=== PATIENT | male | born 1965 | race Caucasian/White ===

== ENCOUNTER 2017-03-16 08:53 | Inpatient (IN) | payer OTHER ==
[2017-03-16 09:55] VITALS: BMI 22.8
--- NOTE | 2017-03-16 12:55 | HP ---
CIWA Score - CIWA Score Nausea/Vomitin-Int. Nausea w/Dry Heave Muscle Tremors: 4-Moderate,w/Arms Extend Anxiety: 4-Mod. Anxious/Guarded Agitation: 4-Moderately Restless Paroxysmal Sweats: No Perspiration Orientation: 0-Oriented Tacttile Disturbances: 3-Moderate Itch/Numb/Burn Auditory Disturbances: 0-None Visual Disturbances: 0-None Headache: 1-Very Mild CIWA-Ar Total Score: 20 Admission ROS S - HPI Chief Complaint: ALCOHOL WITHDRAWAL SX Allergies/Adverse Reactions: Allergies Allergy/AdvReac Type Severity Reaction Status Date / Time No Known Allergies Allergy Verified 03/16/17 11:03 History of Present Illness: 51 Y/O MALE WITH A HX OF ALCOHOL DEPENDENCE SEEKING DETOX [place]. Exam Limitations: No Limitations, Intoxication - Ebola screening Have you traveled outside of the country in the last 21 days: No (N) Have you had contact with anyone from an Ebola affected area: No Have you been sick,other than usual withdrawal symptoms: No Do you have a fever: No - Review of Systems Constitutional: Chills, Loss of Appetite, Night Sweats, Changes in sleep, Unintentional Wgt. Loss EENT: reports: Blurred Vision (WEARS CONTACTS), Tearing, Nose Congestion, Dental Problems (MISSING TEETH) Respiratory: reports: No Symptoms reported Cardiac: reports: Lightheadedness GI: reports: Constipated, Nausea, Poor Appetite, Poor Fluid Intake, Vomiting : reports: Burning (DUE TO DRINKING) Musculoskeletal: reports: Back Pain, Joint Pain, Muscle Pain Integumentary: reports: No Symptoms Reported Neuro: reports: Headache, Tremors, Unsteady Gait, Dizziness Endocrine: reports: No Symptoms Reported Hematology: reports: No Symptoms Reported Psychiatric: reports: Orientated x3 Other Systems: Reviewed and Negative Patient History - Patient Medical History Hx Anemia: No Hx Asthma: No Hx Chronic Obstructive Pulmonary Disease (COPD): No Hx Cancer: No Hx Cardiac Disorders: No Hx Congestive Heart Failure: No Hx Hypertension: No Hx Hypercholesterolemia: No Hx Pacemaker: No HX Cerebrovascular Accident: No Hx Seizures: No Hx Dementia: No Hx Diabetes: No Hx Gastrointestinal Disorders: Yes (acid reflux-NO MED) Hx Liver Disease: No Hx Genitourinary Disorders: No Hx Sexually Transmitted Disorders: No Hx Renal Disease (ESRD): No Hx Thyroid Disease: No Hx Human Immunodeficiency Virus (HIV): No Hx Hepatitis C: No Hx Depression: Yes (NEVER TOOK MED) Hx Suicide Attempt: No (DENIES) Hx Schizophrenia: No - Patient Surgical History Past Surgical History: No Hx Neurologic Surgery: No Hx Cataract Extraction: No Hx Cardiac Surgery: No Hx Lung Surgery: No Hx Breast Surgery: No Hx Breast Biopsy: No Hx Abdominal Surgery: No Hx Appendectomy: No Hx Cholecystectomy: No Hx Genitourinary Surgery: No Hx Orthopedic Surgery: No Anesthesia Reaction: No - PPD History Previous Implant?: Yes Documented Results: Negative w/proof Implanted On Prior [facility] Admission?: Yes Date: 04/29/12 Results: 0 mm PPD to be Administered?: Yes - Reproductive History Patient is a Female of Child Bearing Age (11 -55 yrs old): No (MALE) - Smoking Cessation Smoking history: Current every day smoker Have you smoked in the past 12 months: Yes Aproximately how many cigarettes per day: 30 Hx Chewing Tobacco Use: No Initiated information on smoking cessation: Yes 'Breaking Loose' booklet given: 03/16/17 - Substance & Tx. History Hx Alcohol Use: Yes (VODKA/RUM) Hx Substance Use: Yes (MARIJUANA) Substance Use Type: Alcohol, Marijuana Hx Substance Use Treatment: Yes (LAST TX AT [facility] DETOX) - Substances Abused Alcohol-vodka/rum Route: Oral Frequency: Daily Amount used: 2 pts. Age of first use: 16 Date of Last Use: 03/16/17 Marijuana Route: Smoking Frequency: Daily Amount used: $2-3 Age of first use: 17 Date of Last Use: 03/15/17 Family Disease History - Family Disease History Family History: Denies Admission Physical Exam [facility] - Vital Signs Vital Signs: Vital Signs - 24 hr 03/16/17 09:52 Temperature 95.9 F L Pulse Rate 83 Respiratory 18 Rate Blood Pressure 149/98 - Physical General Appearance: Yes: Moderate Distress, Irritable, Anxious HEENTM: Yes: EOMI, Normocephalic, BETHANY, Pharynx Normal Respiratory: Yes: Chest Non-Tender, Lungs Clear, Normal Breath Sounds, No Respiratory Distress Neck: Yes: Supple, Trachea in good position Breast: Yes: Breast Exam Deferred Cardiology: Yes: Regular Rhythm, Regular Rate, S1, S2 Abdominal: Yes: Normal Bowel Sounds, Non Tender, Flat Genitourinary: Yes: Other (N/C) Back: Yes: Within Normal Limits Musculoskeletal: Yes: full range of Motion, Gait Steady Extremities: Yes: Normal Range of Motion, Non-Tender Neurological: Yes: 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 II-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 NML intact, Fully Oriented, Alert, Motor Strength 5/5 Integumentary: Yes: Dry, Warm, Other (SKIN FLUSHING) Lymphatic: Yes: Within Normal Limits - Diagnostic (1) Alcohol dependence with uncomplicated withdrawal Current Visit: Yes Status: Acute (2) Nicotine dependence Current Visit: Yes Status: Acute Qualifiers: Nicotine product type: cigarettes Substance use status: in withdrawal Qualified Code(s): F17.213 - Nicotine dependence, cigarettes, with withdrawal (3) GERD (gastroesophageal reflux disease) Current Visit: Yes Status: Chronic Qualifiers: Esophagitis presence: without esophagitis Qualified Code(s): K21.9 - Gastro -esophageal reflux disease without esophagitis Cleared for Admission [facility] - Detox or Rehab [facility] Level of Care: Medically Managed Detox Regimen/Protocol: Librium [facility] Breath Alcohol Content Breath Alcohol Content: 0.247 Urine Drug Screen - Results Drug Screen Negative: No Urine Drug Screen Results: THC-Marijuana, BZO-Benzodiazepines
[2017-03-16] MEDS ORDERED: LOPERAMIDE HCL 2 MG CAPSULE PO PRN (13:04)
[2017-03-16] MEDS ORDERED: MAGNESIUM HYDROX 2400MG/30ML ORAL SUSPENSION 30 ML CUP PO PRN (13:04)
[2017-03-16] MEDS ORDERED: chlordiazePOXIDE HCL 25 MG CAPSULE PO PRN (13:04)
[2017-03-16] MEDS ORDERED: ACETAMINOPHEN 325 MG TABLET (FP) PO PRN (13:04)
[2017-03-16] MEDS ORDERED: MENTHOL/PHENOL 1 EACH UD MM PRN (13:04)
[2017-03-16] MEDS ORDERED: MAGNESIUM CITRATE 300 ML BOTTLE PO PRN (13:04)
[2017-03-16] MEDS ORDERED: guaiFENesin/D-METHORPHAN HB 10 ML UNIT-DOSE CUPS PO PRN (13:04)
[2017-03-16] MEDS ORDERED: MAG HYDROX/AL HYDROX/SIMETH 30 ML UNIT-DOSE CUP PO PRN (13:04)
[2017-03-16] MEDS ORDERED: P-EPHED 60MG/TRIPROLIDI 2.5MG TABLET PO PRN (13:04)
[2017-03-16] MEDS ORDERED: IBUPROFEN 400 MG TABLET (FP) PO PRN (13:04)
[2017-03-16] MEDS ORDERED: chlordiazePOXIDE HCL 25 MG CAPSULE PO ONE (14:00)
[2017-03-16] MEDS: NICOTINE 21 MG/24 HOURS TOPICAL PATCH TD SCH (14:20)
[2017-03-16] MEDS: chlordiazePOXIDE HCL 25 MG CAPSULE PO SCH ×2 (17:12→22:32)
[2017-03-16 17:23] LABS: URINE APPEARANCE SLCLOUDY; URINE BILIRUBIN NEGATIVE (NEGATIVE); URINE BLOOD NEGATIVE (NEGATIVE); URINE COLOR AMBER; URINE GLUCOSE (UA) NEGATIVE (NEGATIVE); URINE KETONE TRACE (NEGATIVE); URINE LEUK ESTERASE NEGATIVE (NEGATIVE); URINE NITRITE NEGATIVE (NEGATIVE)
[2017-03-16 17:34] LABS: MCH 35.3 pg (25.7-33.7); MCHC 34.2 g/dl (32.0-35.9); MEAN CELL VOLUME 103.2 fl (80-96); MEAN PLT VOLUME 9.7 fl (7.5-11.1); PLATELET COUNT 167 K/MM3 (134-434); WHITE BLOOD COUNT 7.8 K/mm3 (4.0-10.0)
[2017-03-16 17:41] LABS: URINE PROTEIN 1+ (NEGATIVE)
[2017-03-16 17:45] LABS: URINE MUCUS RARE; URINE RBC 1 /hpf (0-3); URINE WBC 2 /hpf (3-5)
[2017-03-16 17:52] LABS: ALBUMIN 3.8 g/dl (3.4-5.0); ANION GAP 11 (8-16); BILIRUBIN,TOTAL 0.6 mg/dL (0.2-1.0); CO2 32 mmol/L (21-32); CREATININE 0.7 mg/dL (0.7-1.3); GLUCOSE,RANDOM 111 mg/dL (74-106); SGOT/AST 196 U/L (15-37); SGPT/ALT 120 U/L (12-78)
--- NOTE | 2017-03-16 17:53 | CONSULT ---
[facility] Psychiatric Consult - Data Date of interview: 03/16/17 Admission source: [facility] Identifying data: Readmission to [facility] for this 51 y/o male seeking detox treatment on for alcohol and canabis dependence.Patient is single without children,domiciled,unemployed and supported on food stamps. Substance Abuse History: Confirmed by patient in this session.See current [facility] report for details : Smoking history: Current every day smoker. Have you smoked in the past 12 months: Yes. Aproximately how many cigarettes per day: 30. Hx Chewing Tobacco Use: No. Initiated information on smoking cessation: Yes. 'Breaking Loose' booklet given: 03/16/17. - Substance & Tx. History. Hx Alcohol Use: Yes (VODKA/RUM). Hx Substance Use: Yes (MARIJUANA). Substance Use Type: Alcohol, Marijuana. Hx Substance Use Treatment: Yes (LAST TX AT [facility] DETOX). - Substances Abused. Alcohol-vodka/rum. Route: Oral. Frequency: Daily. Amount used: 2 pts. Age of first use: 16. Date of Last Use : 03/16/17. Marijuana. Route: Smoking. Frequency: Daily. Amount used: $2- 3. Age of first use: 17. Date of Last Use: 03/15/17 Medical History: Remarkable for GERD and past history of Korsakoff's syndrome. Psychiatric History: Patient denies. Physical/Sexual Abuse/Trauma History: Patient denies. Additional Comment: Urine Drug Screen Results: THC-Marijuana, BZO- Benzodiazepines.Noted. Mental Status Exam - Mental Status Exam Alert and Oriented to: Time, Place, Person Cognitive Function: Good Patient Appearance: Well Groomed Mood: Withdrawn, Anxious Affect: Mood Congruent Patient Behavior: Fatigued, Appropriate, Cooperative Speech Pattern: Clear, Appropriate Voice Loudness: Normal Thought Process: Intact, Goal Oriented Thought Disorder: Not Present Hallucinations: Denies Suicidal Ideation: Denies Homicidal Ideation: Denies Insight/Judgement: Fair Sleep: Poorly, Difficulty falling asleep Appetite: Good Muscle strength/Tone: Normal Gait/Station: Normal Psychiatric Findings - Problem List ([place] 1, 2,3) (1) Alcohol dependence with uncomplicated withdrawal Current Visit: Yes Status: Acute (2) Nicotine dependence Current Visit: Yes Status: Acute Qualifiers: Nicotine product type: cigarettes Substance use status: in withdrawal Qualified Code(s): F17.213 - Nicotine dependence, cigarettes, with withdrawal (3) Marijuana dependence Current Visit: Yes Status: Acute (4) Insomnia Current Visit: Yes Status: Acute - Initial Treatment Plan Initial Treatment Plan: Psychoeducation.Sleep hygiene.Detoxification protocol in effect.Ambien 10 mg po hs prn.Patient is informed of the risk of parasomnias.He expresses his agreement to this careplan.Observation.
[2017-03-16 17:54] LABS: ALK PHOS 157 U/L (45-117)
[2017-03-16] MEDS: NICOTINE POLACRILEX 4 MG GUM BC PRN (19:51)
[2017-03-16 20:04] LABS: URINE LEUK ESTERASE Negative (NEGATIVE)
[2017-03-16] MEDS: THIAMINE HCL 100 MG TABLET (FP) PO SCH (22:32)
[2017-03-16] MEDS: ZOLPIDEM TARTRATE 10 MG TABLET (PARK CARE ONLY) PO PRN (22:32)
[2017-03-17] MEDS: chlordiazePOXIDE HCL 25 MG CAPSULE PO SCH ×4 (05:41→22:45)
[2017-03-17] MEDS: NICOTINE POLACRILEX 4 MG GUM BC PRN ×2 (08:46→20:41)
[2017-03-17] MEDS: PRENATAL VITAMINS W/ FOLIC ACID TABLET (FP) PO SCH (09:33)
[2017-03-17] MEDS: NICOTINE 21 MG/24 HOURS TOPICAL PATCH TD SCH (09:34)
[2017-03-17] MEDS: TETRAHYDROZOLINE HCL 1 DROP DROPS OU PRN ×2 (10:21→16:32)
--- NOTE | 2017-03-17 11:40 | EKG ---
Test Reason : Blood Pressure : / mmHG Vent. Rate : 081 BPM Atrial Rate : 081 BPM P-R Int : 174 ms QRS Dur : 102 ms QT Int : 370 ms P-R-T Axes : 040 085 066 degrees QTc Int : 429 ms NORMAL SINUS RHYTHM WITH SINUS ARRHYTHMIA NORMAL ECG NO PREVIOUS ECGS AVAILABLE Confirmed by AYAZ MARSHALL MD ([id number]) on 03/17/2017 11:40:29 AM Referred By: Confirmed By:AYAZ MARSHALL MD
--- NOTE | 2017-03-17 12:17 | PN ---
S CIWA - CIWA Score Nausea/Vomitin-No Nausea/No Vomiting Muscle Tremors: 3 Anxiety: 3 Agitation: 1-Slight > Activity Paroxysmal Sweats: 3 Orientation: 0-Oriented Tacttile Disturbances: 1-Very Mild Itch/Numbness Auditory Disturbances: 0-None Visual Disturbances: 3-Moderate Sensitivity Headache: 3-Moderate CIWA-Ar Total Score: 17 BHS Progress Note (SOAP) Subjective: Sweating, Tremors, H/A, Body Aches, Interrupted Sleep. Objective: PT. A &O X 3, OBSERVED AMBULATING ON UNIT. NO ACUTE DISTRESS. 03/17/17 12:13 Vital Signs Temperature 97.1 F L 03/17/17 09:40 Pulse Rate 115 H 03/17/17 09:40 Respiratory Rate 20 03/17/17 09:40 Blood Pressure 143/92 03/17/17 09:40 O2 Sat by Pulse Oximetry (%) Laboratory Tests 03/16/17 03/16/17 03/16/17 13:15 13:15 13:15 WBC 7.8 RBC 4.87 Hgb 17.2 H D Hct 50.3 H MCV 103.2 H MCH 35.3 H MCHC 34.2 RDW 13.0 Plt Count 167 D MPV 9.7 Sodium 142 Potassium 3.3 L D Chloride 99 Carbon Dioxide 32 Anion Gap 11 BUN 8 Creatinine 0.7 Creat Clearance w eGFR > 60 Random Glucose 111 H D Calcium 9.0 Total Bilirubin 0.6 AST 196 H D ALT 120 H D Alkaline Phosphatase 157 H D Total Protein 8.0 D Albumin 3.8 Urine Color Urine Appearance Urine pH Ur Specific [place] Urine Protein Urine Glucose (UA) Urine Ketones Urine Blood Urine Nitrite Urine Bilirubin Urine Urobilinogen Ur Leukocyte Esterase Urine WBC (Auto) Urine RBC (Auto) Urine Mucus RPR Titer Nonreactive 03/16/17 15:15 WBC RBC Hgb Hct MCV MCH MCHC RDW Plt Count MPV Sodium Potassium Chloride Carbon Dioxide Anion Gap BUN Creatinine Creat Clearance w eGFR Random Glucose Calcium Total Bilirubin AST ALT Alkaline Phosphatase Total Protein Albumin Urine Color Maddy Urine Appearance Slcloudy Urine pH 5.0 Ur Specific [place] 1.026 Urine Protein 1+ H Urine Glucose (UA) Negative Urine Ketones Trace H Urine Blood Negative Urine Nitrite Negative Urine Bilirubin Negative Urine Urobilinogen 2.0 Ur Leukocyte Esterase Negative Urine WBC (Auto) 2 Urine RBC (Auto) 1 Urine Mucus Rare RPR Titer LABS NOTED. Assessment: 03/17/17 12:14 WITHDRAWAL SYMPTOMS. HYPOKALEMIA. HYPERTENSION. 03/17/17 12:17 Plan: CONTINUE DETOX. K-DUR, 20 MEQ PO X 1 NOW, THEN 20 MEQ PO BID. CLONIDINE, 0.1 MG PO X 1 FOR ELEVATED BP AND FOR DETOX SYMPTOMS. HFP ON 03/19/2017 FOR ABNORMAL ADMISSION LIVER ENZYME VALUES. INCREASE DAILY PO FLUID INTAKE.
[2017-03-17] MEDS ORDERED: cloNIDine HCL 0.1 MG TABLET PO ONE (12:50)
[2017-03-17] MEDS ORDERED: POTASSIUM CHLORIDE TABS 20 MEQ TABLET.ER (FP) PO ONE (12:50)
[2017-03-17] MEDS: POTASSIUM CHLORIDE TABS 20 MEQ TABLET.ER (FP) PO SCH (17:20)
[2017-03-17] MEDS: THIAMINE HCL 100 MG TABLET (FP) PO SCH (22:45)
[2017-03-17] MEDS: ZOLPIDEM TARTRATE 10 MG TABLET (PARK CARE ONLY) PO PRN (22:45)
[2017-03-18] MEDS: chlordiazePOXIDE HCL 25 MG CAPSULE PO SCH ×2 (06:14→10:13)
[2017-03-18] MEDS: NICOTINE POLACRILEX 4 MG GUM BC PRN ×4 (06:41→22:50)
[2017-03-18] MEDS: NICOTINE 21 MG/24 HOURS TOPICAL PATCH TD SCH (10:13)
[2017-03-18] MEDS: POTASSIUM CHLORIDE TABS 20 MEQ TABLET.ER (FP) PO SCH ×2 (10:13→18:02)
[2017-03-18] MEDS: PRENATAL VITAMINS W/ FOLIC ACID TABLET (FP) PO SCH (10:13)
--- NOTE | 2017-03-18 11:44 | PN ---
S CIWA - CIWA Score Nausea/Vomitin Muscle Tremors: 3 Anxiety: 4-Mod. Anxious/Guarded Agitation: 2 Paroxysmal Sweats: No Perspiration Orientation: 0-Oriented Tacttile Disturbances: 2-Mild Itch/Numbness/Burn Auditory Disturbances: 0-None Visual Disturbances: 2-Mild Sensitivity Headache: 0-None Present CIWA-Ar Total Score: 16 BHS Progress Note (SOAP) Subjective: Nausea, Tremors, Body Aches, Interrupted Sleep, Fatigue. Objective: PT. A & O X 3, OBSERVED AMBULATING ON UNIT. NO ACUTE DISTRESS. PT. DENIES ANY HISTORY OF HTN OR OF TREATMENT FOR HTN. 03/18/17 11:40 Vital Signs Temperature 98.1 F 03/18/17 10:38 Pulse Rate 97 H 03/18/17 10:38 Respiratory Rate 18 03/18/17 10:38 Blood Pressure 131/96 03/18/17 10:38 O2 Sat by Pulse Oximetry (%) Laboratory Tests 03/16/17 03/16/17 03/16/17 13:15 13:15 13:15 WBC 7.8 RBC 4.87 Hgb 17.2 H D Hct 50.3 H MCV 103.2 H MCH 35.3 H MCHC 34.2 RDW 13.0 Plt Count 167 D MPV 9.7 Sodium 142 Potassium 3.3 L D Chloride 99 Carbon Dioxide 32 Anion Gap 11 BUN 8 Creatinine 0.7 Creat Clearance w eGFR > 60 Random Glucose 111 H D Calcium 9.0 Total Bilirubin 0.6 AST 196 H D ALT 120 H D Alkaline Phosphatase 157 H D Total Protein 8.0 D Albumin 3.8 Urine Color Urine Appearance Urine pH Ur Specific [place] Urine Protein Urine Glucose (UA) Urine Ketones Urine Blood Urine Nitrite Urine Bilirubin Urine Urobilinogen Ur Leukocyte Esterase Urine WBC (Auto) Urine RBC (Auto) Urine Mucus RPR Titer Nonreactive 03/16/17 15:15 WBC RBC Hgb Hct MCV MCH MCHC RDW Plt Count MPV Sodium Potassium Chloride Carbon Dioxide Anion Gap BUN Creatinine Creat Clearance w eGFR Random Glucose Calcium Total Bilirubin AST ALT Alkaline Phosphatase Total Protein Albumin Urine Color Maddy Urine Appearance Slcloudy Urine pH 5.0 Ur Specific [place] 1.026 Urine Protein 1+ H Urine Glucose (UA) Negative Urine Ketones Trace H Urine Blood Negative Urine Nitrite Negative Urine Bilirubin Negative Urine Urobilinogen 2.0 Ur Leukocyte Esterase Negative Urine WBC (Auto) 2 Urine RBC (Auto) 1 Urine Mucus Rare RPR Titer LABS NOTED. 03/18/17 11:43 Assessment: 03/18/17 11:41 WITHDRAWAL SYMPTOMS. HYPOKALEMIA. 03/18/17 11:44 Plan: CONTINUE DETOX. INCREASE DAILY PO FLUID INTAKE. CONTINUE TO MONITOR BP. CONTINUE K-DUR.
[2017-03-18] MEDS: TETRAHYDROZOLINE HCL 1 DROP DROPS OU PRN (15:01)
[2017-03-18] MEDS: chlordiazePOXIDE 5 MG CAPSULE PO SCH ×2 (18:02→22:48)
[2017-03-18] MEDS: THIAMINE HCL 100 MG TABLET (FP) PO SCH (22:48)
[2017-03-19] MEDS: chlordiazePOXIDE 5 MG CAPSULE PO SCH ×2 (05:42→10:02)
[2017-03-19] MEDS: NICOTINE POLACRILEX 4 MG GUM BC PRN ×3 (05:45→13:37)
[2017-03-19] MEDS: PRENATAL VITAMINS W/ FOLIC ACID TABLET (FP) PO SCH (10:01)
[2017-03-19] MEDS: NICOTINE 21 MG/24 HOURS TOPICAL PATCH TD SCH (10:02)
[2017-03-19] MEDS: POTASSIUM CHLORIDE TABS 20 MEQ TABLET.ER (FP) PO SCH ×2 (10:02→21:24)
[2017-03-19] MEDS: TETRAHYDROZOLINE HCL 1 DROP DROPS OU PRN ×2 (10:03→13:37)
[2017-03-19 11:34] LABS: ALBUMIN 3.8 g/dl (3.4-5.0); BILIRUBIN,DIRECT 0.5 mg/dL (0.0-0.2); BILIRUBIN,TOTAL 1.1 mg/dL (0.2-1.0); TOT PROT 7.7 g/dl (6.4-8.2)
--- NOTE | 2017-03-19 16:32 | PN ---
BHS Progress Note (SOAP) Subjective: Nausea, Anxious, H/A, Stomach Cramping, Tremors, Sweating. Objective: PT. A & O X 3, OBSERVED AMBULATING ON UNIT. NO ACUTE DISTRESS. PT. DENIES CHEST PAIN. 03/19/17 16:28 Vital Signs Temperature 95.9 F L 03/19/17 13:54 Pulse Rate 98 H 03/19/17 13:54 Respiratory Rate 18 03/19/17 13:54 Blood Pressure 124/80 03/19/17 13:54 O2 Sat by Pulse Oximetry (%) Laboratory Tests 03/16/17 03/16/17 03/16/17 13:15 13:15 13:15 WBC 7.8 RBC 4.87 Hgb 17.2 H D Hct 50.3 H MCV 103.2 H MCH 35.3 H MCHC 34.2 RDW 13.0 Plt Count 167 D MPV 9.7 Sodium 142 Potassium 3.3 L D Chloride 99 Carbon Dioxide 32 Anion Gap 11 BUN 8 Creatinine 0.7 Creat Clearance w eGFR > 60 Random Glucose 111 H D Calcium 9.0 Total Bilirubin 0.6 Direct Bilirubin AST 196 H D ALT 120 H D Alkaline Phosphatase 157 H D Total Protein 8.0 D Albumin 3.8 Urine Color Urine Appearance Urine pH Ur Specific [place] Urine Protein Urine Glucose (UA) Urine Ketones Urine Blood Urine Nitrite Urine Bilirubin Urine Urobilinogen Ur Leukocyte Esterase Urine WBC (Auto) Urine RBC (Auto) Urine Mucus RPR Titer Nonreactive 03/16/17 03/19/17 15:15 08:00 WBC RBC Hgb Hct MCV MCH MCHC RDW Plt Count MPV Sodium Potassium Chloride Carbon Dioxide Anion Gap BUN Creatinine Creat Clearance w eGFR Random Glucose Calcium Total Bilirubin 1.1 H D Direct Bilirubin 0.5 H D AST 174 H ALT 127 H Alkaline Phosphatase 148 H Total Protein 7.7 Albumin 3.8 Urine Color Maddy Urine Appearance Slcloudy Urine pH 5.0 Ur Specific [place] 1.026 Urine Protein 1+ H Urine Glucose (UA) Negative Urine Ketones Trace H Urine Blood Negative Urine Nitrite Negative Urine Bilirubin Negative Urine Urobilinogen 2.0 Ur Leukocyte Esterase Negative Urine WBC (Auto) 2 Urine RBC (Auto) 1 Urine Mucus Rare RPR Titer LABS NOTED. Assessment: 03/19/17 16:28 WITHDRAWAL SYMPTOMS. Plan: CONTINUE DETOX. INCREASE DAILY PO FLUID INTAKE. PATIENT ADVISED TO FOLLOW-UP WITH MOBILE UI DEVELOPER DR. Jose M WHITFIELD AFTER DISCHARGE FROM DETOX FOR GENERAL MEDICAL ASSESSMENT AND FOR ELEVATED LIVER ENZYME VALUES WHILE ADMITTED FOR DETOX.
[2017-03-19] MEDS: chlordiazePOXIDE HCL 10 MG CAPSULE PO SCH ×2 (16:58→22:11)
[2017-03-19] MEDS: THIAMINE HCL 100 MG TABLET (FP) PO SCH (21:25)
[2017-03-19] MEDS: ZOLPIDEM TARTRATE 10 MG TABLET (PARK CARE ONLY) PO PRN (22:11)
[2017-03-20] MEDS: chlordiazePOXIDE HCL 10 MG CAPSULE PO SCH ×2 (05:49→10:17)
[2017-03-20] MEDS: TETRAHYDROZOLINE HCL 1 DROP DROPS OU PRN (08:20)
[2017-03-20 09:34] VITALS: BP 106/75; PULSE 118; TEMP 96.5
[2017-03-20] MEDS: POTASSIUM CHLORIDE TABS 20 MEQ TABLET.ER (FP) PO SCH (10:17)
[2017-03-20] MEDS: NICOTINE 21 MG/24 HOURS TOPICAL PATCH TD SCH (10:17)
[2017-03-20] MEDS: PRENATAL VITAMINS W/ FOLIC ACID TABLET (FP) PO SCH (10:17)
[2017-03-20] MEDS: NICOTINE POLACRILEX 4 MG GUM BC PRN (10:18)
--- NOTE | 2017-03-20 16:08 | DS ---
[facility] Detox Discharge Summary Admission Date: 03/16/17 Discharge Date: 03/20/17 - History Present History: Alcohol Dependence, Cannabis Dependence Pertinent Past History: GERD - Physical Exam Results Vital Signs: Vital Signs Temperature 96.5 F L 03/20/17 09:33 Pulse Rate 118 H 03/20/17 09:33 Respiratory Rate 18 03/20/17 09:33 Blood Pressure 106/75 03/20/17 09:33 O2 Sat by Pulse Oximetry (%) Pertinent Admission Physical Exam Findings: Withdrawal symptoms Laboratory Tests 03/16/17 03/16/17 03/16/17 13:15 13:15 13:15 WBC 7.8 RBC 4.87 Hgb 17.2 H D Hct 50.3 H MCV 103.2 H MCH 35.3 H MCHC 34.2 RDW 13.0 Plt Count 167 D MPV 9.7 Sodium 142 Potassium 3.3 L D Chloride 99 Carbon Dioxide 32 Anion Gap 11 BUN 8 Creatinine 0.7 Creat Clearance w eGFR > 60 Random Glucose 111 H D Calcium 9.0 Total Bilirubin 0.6 Direct Bilirubin AST 196 H D ALT 120 H D Alkaline Phosphatase 157 H D Total Protein 8.0 D Albumin 3.8 Urine Color Urine Appearance Urine pH Ur Specific [place] Urine Protein Urine Glucose (UA) Urine Ketones Urine Blood Urine Nitrite Urine Bilirubin Urine Urobilinogen Ur Leukocyte Esterase Urine WBC (Auto) Urine RBC (Auto) Urine Mucus RPR Titer Nonreactive 03/16/17 03/19/17 15:15 08:00 WBC RBC Hgb Hct MCV MCH MCHC RDW Plt Count MPV Sodium Potassium Chloride Carbon Dioxide Anion Gap BUN Creatinine Creat Clearance w eGFR Random Glucose Calcium Total Bilirubin 1.1 H D Direct Bilirubin 0.5 H D AST 174 H ALT 127 H Alkaline Phosphatase 148 H Total Protein 7.7 Albumin 3.8 Urine Color Maddy Urine Appearance Slcloudy Urine pH 5.0 Ur Specific [place] 1.026 Urine Protein 1+ H Urine Glucose (UA) Negative Urine Ketones Trace H Urine Blood Negative Urine Nitrite Negative Urine Bilirubin Negative Urine Urobilinogen 2.0 Ur Leukocyte Esterase Negative Urine WBC (Auto) 2 Urine RBC (Auto) 1 Urine Mucus Rare RPR Titer Labs noted: K 3.3 (replenished with K Dur, repeat serum K level) UA: abnormal ( encouraged to drink lots of water, repeat UA) - Treatment Hospital Course: Detox Protocol Followed, Detoxed Safely, Responded well, Discharged Condition Good, Rehab Referral Accepted - Medication Discharge Medications: Ambulatory Orders Thiamine HCl [Vitamin B-1] 03/20/17 - Diagnosis (1) depression Status: Chronic (2) Alcohol dependence with uncomplicated withdrawal Status: Acute (3) Marijuana dependence Status: Chronic (4) Nicotine dependence Status: Chronic Qualifiers: Nicotine product type: cigarettes Substance use status: in withdrawal Qualified Code(s): F17.213 - Nicotine dependence, cigarettes, with withdrawal (5) GERD (gastroesophageal reflux disease) Status: Chronic Qualifiers: Esophagitis presence: without esophagitis Qualified Code(s): K21.9 - Gastro -esophageal reflux disease without esophagitis (6) Hypokalemia Status: Acute (7) Abnormal urinalysis Status: Acute - AMA Did Patient Leave Against Medical Advice: No (F/U with PCP within 1-2 weeks after discharged from rehab)
== END 2017-03-20 12:26 | disposition other institution (70) | DRG 775 ==
LOC: YASAS 08:53 → Y3N 12:04
PROVIDERS: ADMIT Internal Medicine; ATTEND Internal Medicine
PROC: HZ2ZZZZ Detoxification Services for Substance Abuse Treatment (ICD-10-PCS; principal; 2017-03-16)
DX: F10.230 Alcohol dependence with withdrawal, uncomplicated (principal); F12.20 Cannabis dependence, uncomplicated; F17.210 Nicotine dependence, cigarettes, uncomplicated; F32.9 Major depressive disorder, single episode, unspecified; G47.00 Insomnia, unspecified; E87.6 Hypokalemia; K21.9 Gastro-esophageal reflux disease without esophagitis
CPT/HCPCS: 36415; 80053; 80076; 81003; 81015; 85027; 86593; 93005; 93010

== ENCOUNTER 2017-03-20 12:34 | Inpatient (IN) | payer OTHER ==
[2017-03-20] MEDS ORDERED: MAG HYDROX/AL HYDROX/SIMETH 30 ML UNIT-DOSE CUP PO PRN (13:02)
[2017-03-20] MEDS ORDERED: MAGNESIUM HYDROX 2400MG/30ML ORAL SUSPENSION 30 ML CUP PO PRN (13:02)
[2017-03-20] MEDS ORDERED: guaiFENesin/D-METHORPHAN HB 10 ML UNIT-DOSE CUPS PO PRN (13:02)
[2017-03-20] MEDS ORDERED: P-EPHED 60MG/TRIPROLIDI 2.5MG TABLET PO PRN (13:02)
[2017-03-20] MEDS ORDERED: IBUPROFEN 400 MG TABLET (FP) PO PRN (13:02)
[2017-03-20] MEDS ORDERED: MAGNESIUM CITRATE 300 ML BOTTLE PO PRN (13:02)
[2017-03-20] MEDS ORDERED: MENTHOL/PHENOL 1 EACH UD MM PRN (13:02)
[2017-03-20] MEDS ORDERED: ACETAMINOPHEN 325 MG TABLET (FP) PO PRN (13:02)
--- NOTE | 2017-03-20 13:06 | HP ---
[facility] Rehab Assess/Revision - Admission History Admitted to Rehab from: [facility] Date of Admission to Rehab: 03/20/17 - Vital signs Vital Signs: Vital Signs Period Temp Pulse Resp BP Sys/Alvarez Pulse Ox Last 24 Hr 98 F 98 16 109/71 - Findings Detox History & Physical reviewed: Yes Concur with findings: Yes Comments/Additional Findings: FOR REHAB PROTOCOL Inpatient Rehab Admission - Initial Determination Are CD services needed?: Yes Free of communicable disease: Yes Not in need of hospitalization: Yes - Rehab Admission Criteria Previous failed treatment: Yes Poor recovery environment: Yes Comorbidities: Yes Patient is meeting Inpatient Rehab admission criteria:: Yes
[2017-03-20] MEDS: THIAMINE HCL 100 MG TABLET (FP) PO SCH (21:41)
[2017-03-20] MEDS: hydrOXYzine PAMOATE 50 MG CAPSULE (FP) PO PRN (21:43)
[2017-03-21] MEDS: NICOTINE POLACRILEX 4 MG GUM BUC PRN ×4 (06:48→18:15)
[2017-03-21] MEDS: hydrOXYzine PAMOATE 50 MG CAPSULE (FP) PO PRN ×3 (06:48→18:15)
[2017-03-21] MEDS ORDERED: POTASSIUM CHLORIDE TABS 20 MEQ TABLET.ER (FP) PO SCH (10:00)
[2017-03-21 10:09] LABS: CHLORIDE 99 mmol/L (98-107); POTASSIUM 5.3 mmol/L (3.5-5.1); SODIUM 135 mmol/L (136-145)
[2017-03-21 10:23] LABS: ANION GAP 9 (8-16); BLOOD UREA NITROGEN 21 mg/dL (7-18); CO2 27 mmol/L (21-32); GLUCOSE,RANDOM 106 mg/dL (74-106)
[2017-03-21] MEDS: PRENATAL VITAMINS W/ FOLIC ACID TABLET (FP) PO SCH (10:28)
[2017-03-21] MEDS: NICOTINE 21 MG/24 HOURS TOPICAL PATCH TD SCH (10:28)
--- NOTE | 2017-03-21 11:40 | HP ---
Psychiatrist Admission - Data Date of interview: 03/21/17 Admission source: [address] [place] [address] detox Identifying data: This is the first admission to [address] [place] [address] inpatient rehabilitation for this 51 years old male,childless,unemployed, supported by Foodstamps,undomiciled. Medical History: GERD. Psychiatric History: Patient denies psychiatric history but reports being anxious depressed mostly when he is abstinent.States he was on Ambien as needed while in detox on [address] [place] [address] Physical/Sexual Abuse/Trauma History: denies Vital Signs: Vital Signs - 24 hr 03/20/17 03/20/17 03/21/17 12:38 16:00 00:30 Temperature 98 F 97.5 F L Pulse Rate 98 H 98 H Respiratory 16 16 16 Rate Blood Pressure 109/71 109/71 03/21/17 03/21/17 03:30 06:47 Temperature 97.8 F Pulse Rate 111 H Respiratory 16 16 Rate Blood Pressure 127/66 Allergies/Adverse Reactions: Allergies Allergy/AdvReac Type Severity Reaction Status Date / Time No Known Allergies Allergy Verified 03/20/17 12:39 Concur with the findings of this exam: Yes - Substance Abuse/Tx History Hx Alcohol Use: Yes (drinking since 16 yo,hard liquors 2-3 pints daily) Hx Substance Use: Yes (marijuana since school age) Substance Use Type: Alcohol, Marijuana Hx Substance Use Treatment: Yes (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,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) Mental Status Exam - Mental Status Exam Alert and Oriented to: Time, Place, Person Cognitive Function: Fair Patient Appearance: Well Groomed Mood: Sad Affect: Mood Congruent Patient Behavior: Cooperative Speech Pattern: Clear Voice Loudness: Normal Thought Process: Goal Oriented Thought Disorder: Not Present Hallucinations: Denies Suicidal Ideation: Denies Homicidal Ideation: Denies Insight/Judgement: Fair Sleep: Fair Appetite: Good Muscle strength/Tone: Normal Gait/Station: Normal Psychiatric Findings - Problem List ([place] 1, 2,3) (1) GERD (gastroesophageal reflux disease) Current Visit: Yes Status: Chronic Qualifiers: Esophagitis presence: without esophagitis Qualified Code(s): K21.9 - Gastro -esophageal reflux disease without esophagitis (2) Marijuana dependence Current Visit: Yes Status: Chronic (3) Nicotine dependence Current Visit: Yes Status: Chronic Qualifiers: Nicotine product type: cigarettes Substance use status: in withdrawal Qualified Code(s): F17.213 - Nicotine dependence, cigarettes, with withdrawal (4) Alcohol dependence Current Visit: Yes Status: Chronic (5) Substance-induced sleep disorder Current Visit: Yes Status: Chronic - Initial Treatment Plan Initial Treatment Plan: Benadryl 50 mg po hs .Will monitor progress.
[2017-03-21] MEDS: THIAMINE HCL 100 MG TABLET (FP) PO SCH (21:31)
[2017-03-21] MEDS: LOPERAMIDE HCL 2 MG CAPSULE PO PRN (21:41)
[2017-03-21] MEDS: diphenhydrAMINE HCL 50 MG CAPSULE PO PRN (21:42)
[2017-03-22] MEDS: LOPERAMIDE HCL 2 MG CAPSULE PO PRN ×2 (06:20→17:27)
[2017-03-22] MEDS: NICOTINE POLACRILEX 4 MG GUM BUC PRN ×3 (06:22→20:21)
[2017-03-22] MEDS: NICOTINE 21 MG/24 HOURS TOPICAL PATCH TD SCH (10:01)
[2017-03-22] MEDS: PRENATAL VITAMINS W/ FOLIC ACID TABLET (FP) PO SCH (10:01)
[2017-03-22] MEDS: hydrOXYzine PAMOATE 50 MG CAPSULE (FP) PO PRN (17:27)
[2017-03-22] MEDS: diphenhydrAMINE HCL 50 MG CAPSULE PO PRN (21:24)
[2017-03-22] MEDS: THIAMINE HCL 100 MG TABLET (FP) PO SCH (21:24)
[2017-03-23] MEDS: NICOTINE POLACRILEX 4 MG GUM BUC PRN (07:16)
[2017-03-23] MEDS: PRENATAL VITAMINS W/ FOLIC ACID TABLET (FP) PO SCH (10:26)
[2017-03-23] MEDS: NICOTINE 21 MG/24 HOURS TOPICAL PATCH TD SCH (10:26)
[2017-03-23] MEDS: THIAMINE HCL 100 MG TABLET (FP) PO SCH (21:32)
[2017-03-23] MEDS: diphenhydrAMINE HCL 50 MG CAPSULE PO PRN (21:32)
[2017-03-24] MEDS: NICOTINE POLACRILEX 4 MG GUM BUC PRN ×2 (07:24→10:25)
[2017-03-24 09:53] LABS: BASO % 0.8 % (0-2.0); EOS % 3.1 % (0-4.5); HEMATOCRIT 48.4 % (35.4-49); HEMOGLOBIN 16.3 GM/dL (11.7-16.9); LYMPH % 20.1 % (8-40); MCH 34.8 pg (25.7-33.7); MCHC 33.7 g/dl (32.0-35.9); MEAN CELL VOLUME 103.4 fl (80-96); MONO % 20.1 % (3.8-10.2); NEUT % 55.9 % (42.8-82.8); PLATELET COUNT 194 K/MM3 (134-434); RBC 4.69 M/mm3 (4.00-5.60); RDW 13.2 % (11.9-15.9); WHITE BLOOD COUNT 9.2 K/mm3 (4.0-10.0)
[2017-03-24 10:12] LABS: ANION GAP 8 (8-16); BLOOD UREA NITROGEN 18 mg/dL (7-18); CALCIUM 8.5 mg/dL (8.5-10.1); CHLORIDE 101 mmol/L (98-107); CO2 27 mmol/L (21-32); GLUCOSE,RANDOM 170 mg/dL (74-106); POTASSIUM 4.6 mmol/L (3.5-5.1); SODIUM 136 mmol/L (136-145)
[2017-03-24] MEDS: NICOTINE 21 MG/24 HOURS TOPICAL PATCH TD SCH (10:20)
[2017-03-24] MEDS: PRENATAL VITAMINS W/ FOLIC ACID TABLET (FP) PO SCH (10:20)
[2017-03-24] MEDS: NAPHAZOLINE/PHENIRAMINE OPHTHALMIC 15 ML BOTTLE OU PRN ×3 (10:21→22:02)
--- NOTE | 2017-03-24 10:49 | PN ---
Progress Note (short form) - Note Progress Note: c/o 3 episodes of foul smelling loose watery diarrhea yesterday and 1 episode this morning. overnight he had one episode of bowel incontinence when he passed gas he also passed stool in bed. denies hematochezia, abdominal cramps/pain, n/v, recent antibiotic use, fevers, chills, drinking well water, hiking. bmp without electrolyte abnormalities, no leucocytosis PE: HEENT: no oral erythema, thrush, -lad CV: s1, s2, no murmurs Lungs: CTAB ABd: soft, nd/nt, + normoactive bs in all 4 quadrants ext: no edema Neuro: eomi, magalis, gait normal plan: recommend oral hydration, imodium prn since bmp without electrolyte abnormalities, no leucocytosis, will trial loperamide if no relief with loperamide and sx worsen will consider investigation for c.diff/stool for cx/ova and parasite Discussed with Dr. Gruber Problem List - Problems (1) Watery stools Code(s): R19.5 - OTHER FECAL ABNORMALITIES (2) GERD (gastroesophageal reflux disease) Code(s): K21.9 - GASTRO-ESOPHAGEAL REFLUX DISEASE WITHOUT ESOPHAGITIS Qualifiers: Esophagitis presence: without esophagitis Qualified Code(s): K21.9 - Gastro -esophageal reflux disease without esophagitis (3) Nicotine dependence Code(s): F17.200 - NICOTINE DEPENDENCE, UNSPECIFIED, UNCOMPLICATED Qualifiers: Nicotine product type: cigarettes Substance use status: in withdrawal Qualified Code(s): F17.213 - Nicotine dependence, cigarettes, with withdrawal (4) Insomnia Code(s): G47.00 - INSOMNIA, UNSPECIFIED
[2017-03-24] MEDS: hydrOXYzine PAMOATE 50 MG CAPSULE (FP) PO PRN (22:00)
[2017-03-24] MEDS: THIAMINE HCL 100 MG TABLET (FP) PO SCH (22:00)
[2017-03-25] MEDS: NICOTINE POLACRILEX 4 MG GUM BUC PRN ×4 (06:26→21:35)
[2017-03-25] MEDS: NAPHAZOLINE/PHENIRAMINE OPHTHALMIC 15 ML BOTTLE OU PRN ×3 (06:29→21:34)
[2017-03-25] MEDS: NICOTINE 21 MG/24 HOURS TOPICAL PATCH TD SCH (10:19)
[2017-03-25] MEDS: PRENATAL VITAMINS W/ FOLIC ACID TABLET (FP) PO SCH (10:20)
[2017-03-25] MEDS: LOPERAMIDE HCL 2 MG CAPSULE PO PRN ×2 (13:11→21:34)
[2017-03-25] MEDS: THIAMINE HCL 100 MG TABLET (FP) PO SCH (21:33)
[2017-03-25] MEDS: diphenhydrAMINE HCL 50 MG CAPSULE PO PRN (21:34)
[2017-03-26] MEDS: LOPERAMIDE HCL 2 MG CAPSULE PO PRN ×2 (06:42→13:22)
[2017-03-26] MEDS: NICOTINE POLACRILEX 4 MG GUM BUC PRN ×3 (06:43→17:52)
[2017-03-26] MEDS: PRENATAL VITAMINS W/ FOLIC ACID TABLET (FP) PO SCH (10:22)
[2017-03-26] MEDS: NICOTINE 21 MG/24 HOURS TOPICAL PATCH TD SCH (10:22)
[2017-03-26] MEDS: hydrOXYzine PAMOATE 50 MG CAPSULE (FP) PO PRN (13:22)
[2017-03-26] MEDS: diphenhydrAMINE HCL 50 MG CAPSULE PO PRN (21:29)
[2017-03-26] MEDS: THIAMINE HCL 100 MG TABLET (FP) PO SCH (21:29)
[2017-03-27] MEDS: NICOTINE POLACRILEX 4 MG GUM BUC PRN ×3 (06:30→21:33)
[2017-03-27] MEDS: NAPHAZOLINE/PHENIRAMINE OPHTHALMIC 15 ML BOTTLE OU PRN ×2 (06:42→16:49)
[2017-03-27] MEDS: LOPERAMIDE HCL 2 MG CAPSULE PO PRN (06:42)
[2017-03-27] MEDS: PRENATAL VITAMINS W/ FOLIC ACID TABLET (FP) PO SCH (10:04)
[2017-03-27] MEDS: NICOTINE 21 MG/24 HOURS TOPICAL PATCH TD SCH (10:04)
[2017-03-27] MEDS: hydrOXYzine PAMOATE 50 MG CAPSULE (FP) PO PRN (10:05)
[2017-03-27] MEDS: THIAMINE HCL 100 MG TABLET (FP) PO SCH (21:32)
[2017-03-27] MEDS: diphenhydrAMINE HCL 50 MG CAPSULE PO PRN (21:32)
[2017-03-28] MEDS: NICOTINE POLACRILEX 4 MG GUM BUC PRN ×4 (06:19→21:37)
[2017-03-28] MEDS: NAPHAZOLINE/PHENIRAMINE OPHTHALMIC 15 ML BOTTLE OU PRN (06:19)
[2017-03-28] MEDS: NICOTINE 21 MG/24 HOURS TOPICAL PATCH TD SCH (10:24)
[2017-03-28] MEDS: PRENATAL VITAMINS W/ FOLIC ACID TABLET (FP) PO SCH (10:24)
[2017-03-28] MEDS: hydrOXYzine PAMOATE 50 MG CAPSULE (FP) PO PRN (14:57)
[2017-03-28] MEDS: THIAMINE HCL 100 MG TABLET (FP) PO SCH (21:35)
[2017-03-28] MEDS: diphenhydrAMINE HCL 50 MG CAPSULE PO PRN (21:37)
[2017-03-29] MEDS: NICOTINE POLACRILEX 4 MG GUM BUC PRN ×4 (06:23→21:48)
[2017-03-29] MEDS: NICOTINE 21 MG/24 HOURS TOPICAL PATCH TD SCH (10:14)
[2017-03-29] MEDS: PRENATAL VITAMINS W/ FOLIC ACID TABLET (FP) PO SCH (10:14)
[2017-03-29] MEDS: NAPHAZOLINE/PHENIRAMINE OPHTHALMIC 15 ML BOTTLE OU PRN (10:15)
[2017-03-29] MEDS: hydrOXYzine PAMOATE 50 MG CAPSULE (FP) PO PRN (11:05)
[2017-03-29] MEDS: diphenhydrAMINE HCL 50 MG CAPSULE PO PRN (21:48)
[2017-03-29] MEDS: THIAMINE HCL 100 MG TABLET (FP) PO SCH (21:48)
[2017-03-30] MEDS: NICOTINE POLACRILEX 4 MG GUM BUC PRN ×4 (06:20→21:32)
[2017-03-30] MEDS: PRENATAL VITAMINS W/ FOLIC ACID TABLET (FP) PO SCH (10:21)
[2017-03-30] MEDS: NICOTINE 21 MG/24 HOURS TOPICAL PATCH TD SCH (10:21)
[2017-03-30] MEDS: NAPHAZOLINE/PHENIRAMINE OPHTHALMIC 15 ML BOTTLE OU PRN ×2 (10:22→21:32)
[2017-03-30] MEDS: hydrOXYzine PAMOATE 50 MG CAPSULE (FP) PO PRN (15:18)
[2017-03-30] MEDS: diphenhydrAMINE HCL 50 MG CAPSULE PO PRN (21:32)
[2017-03-30] MEDS: THIAMINE HCL 100 MG TABLET (FP) PO SCH (21:32)
[2017-03-31] MEDS: NICOTINE POLACRILEX 4 MG GUM BUC PRN ×4 (06:22→21:33)
[2017-03-31] MEDS: NAPHAZOLINE/PHENIRAMINE OPHTHALMIC 15 ML BOTTLE OU PRN (06:23)
[2017-03-31] MEDS: PRENATAL VITAMINS W/ FOLIC ACID TABLET (FP) PO SCH (11:00)
[2017-03-31] MEDS: NICOTINE 21 MG/24 HOURS TOPICAL PATCH TD SCH (11:02)
[2017-03-31] MEDS: diphenhydrAMINE HCL 50 MG CAPSULE PO PRN (21:32)
[2017-03-31] MEDS: THIAMINE HCL 100 MG TABLET (FP) PO SCH (21:32)
[2017-04-01] MEDS: NICOTINE POLACRILEX 4 MG GUM BUC PRN ×5 (06:24→23:01)
[2017-04-01] MEDS: NICOTINE 21 MG/24 HOURS TOPICAL PATCH TD SCH (10:07)
[2017-04-01] MEDS: PRENATAL VITAMINS W/ FOLIC ACID TABLET (FP) PO SCH (10:07)
[2017-04-01] MEDS: diphenhydrAMINE HCL 50 MG CAPSULE PO PRN (21:26)
[2017-04-01] MEDS: THIAMINE HCL 100 MG TABLET (FP) PO SCH (21:26)
[2017-04-02] MEDS: NICOTINE POLACRILEX 4 MG GUM BUC PRN ×5 (06:18→22:34)
[2017-04-02] MEDS: NAPHAZOLINE/PHENIRAMINE OPHTHALMIC 15 ML BOTTLE OU PRN (06:21)
[2017-04-02] MEDS: PRENATAL VITAMINS W/ FOLIC ACID TABLET (FP) PO SCH (10:07)
[2017-04-02] MEDS: NICOTINE 21 MG/24 HOURS TOPICAL PATCH TD SCH (10:07)
[2017-04-02] MEDS: hydrOXYzine PAMOATE 50 MG CAPSULE (FP) PO PRN (15:01)
[2017-04-02] MEDS: THIAMINE HCL 100 MG TABLET (FP) PO SCH (21:29)
[2017-04-02] MEDS: diphenhydrAMINE HCL 50 MG CAPSULE PO PRN (21:29)
[2017-04-03] MEDS: NICOTINE POLACRILEX 4 MG GUM BUC PRN ×4 (06:22→20:18)
[2017-04-03] MEDS: NICOTINE 21 MG/24 HOURS TOPICAL PATCH TD SCH (09:45)
[2017-04-03] MEDS: PRENATAL VITAMINS W/ FOLIC ACID TABLET (FP) PO SCH (09:45)
[2017-04-03] MEDS: hydrOXYzine PAMOATE 50 MG CAPSULE (FP) PO PRN (14:32)
[2017-04-03] MEDS: diphenhydrAMINE HCL 50 MG CAPSULE PO PRN (21:38)
[2017-04-03] MEDS: THIAMINE HCL 100 MG TABLET (FP) PO SCH (21:38)
[2017-04-03] MEDS: NAPHAZOLINE/PHENIRAMINE OPHTHALMIC 15 ML BOTTLE OU PRN (21:40)
[2017-04-04] MEDS: NICOTINE POLACRILEX 4 MG GUM BUC PRN ×7 (06:27→22:32)
[2017-04-04] MEDS: PRENATAL VITAMINS W/ FOLIC ACID TABLET (FP) PO SCH (09:55)
[2017-04-04] MEDS: NICOTINE 21 MG/24 HOURS TOPICAL PATCH TD SCH (09:55)
[2017-04-04] MEDS: hydrOXYzine PAMOATE 50 MG CAPSULE (FP) PO PRN (12:29)
[2017-04-04] MEDS: THIAMINE HCL 100 MG TABLET (FP) PO SCH (21:30)
[2017-04-04] MEDS: NAPHAZOLINE/PHENIRAMINE OPHTHALMIC 15 ML BOTTLE OU PRN (21:30)
[2017-04-04] MEDS: diphenhydrAMINE HCL 50 MG CAPSULE PO PRN (21:30)
[2017-04-05] MEDS: NICOTINE POLACRILEX 4 MG GUM BUC PRN ×6 (06:32→22:35)
[2017-04-05] MEDS: NAPHAZOLINE/PHENIRAMINE OPHTHALMIC 15 ML BOTTLE OU PRN (10:10)
[2017-04-05] MEDS: PRENATAL VITAMINS W/ FOLIC ACID TABLET (FP) PO SCH (10:10)
[2017-04-05] MEDS: NICOTINE 21 MG/24 HOURS TOPICAL PATCH TD SCH (10:10)
[2017-04-05] MEDS: THIAMINE HCL 100 MG TABLET (FP) PO SCH (21:42)
[2017-04-05] MEDS: diphenhydrAMINE HCL 50 MG CAPSULE PO PRN (21:42)
[2017-04-06] MEDS: NAPHAZOLINE/PHENIRAMINE OPHTHALMIC 15 ML BOTTLE OU PRN (06:21)
[2017-04-06] MEDS: NICOTINE POLACRILEX 4 MG GUM BUC PRN ×7 (06:21→22:27)
[2017-04-06] MEDS: NICOTINE 21 MG/24 HOURS TOPICAL PATCH TD SCH (09:48)
[2017-04-06] MEDS: PRENATAL VITAMINS W/ FOLIC ACID TABLET (FP) PO SCH (09:48)
[2017-04-06] MEDS: diphenhydrAMINE HCL 50 MG CAPSULE PO PRN (21:36)
[2017-04-06] MEDS: THIAMINE HCL 100 MG TABLET (FP) PO SCH (21:36)
[2017-04-07] MEDS: NICOTINE POLACRILEX 4 MG GUM BUC PRN ×6 (06:26→21:46)
[2017-04-07] MEDS: PRENATAL VITAMINS W/ FOLIC ACID TABLET (FP) PO SCH (10:17)
[2017-04-07] MEDS: NICOTINE 21 MG/24 HOURS TOPICAL PATCH TD SCH (10:18)
[2017-04-07] MEDS: THIAMINE HCL 100 MG TABLET (FP) PO SCH (21:44)
[2017-04-07] MEDS: diphenhydrAMINE HCL 50 MG CAPSULE PO PRN (21:45)
[2017-04-08] MEDS: NAPHAZOLINE/PHENIRAMINE OPHTHALMIC 15 ML BOTTLE OU PRN (06:19)
[2017-04-08] MEDS: NICOTINE POLACRILEX 4 MG GUM BUC PRN ×6 (06:19→21:40)
[2017-04-08] MEDS: NICOTINE 21 MG/24 HOURS TOPICAL PATCH TD SCH (10:08)
[2017-04-08] MEDS: PRENATAL VITAMINS W/ FOLIC ACID TABLET (FP) PO SCH (10:08)
[2017-04-08] MEDS: THIAMINE HCL 100 MG TABLET (FP) PO SCH (21:39)
[2017-04-08] MEDS: diphenhydrAMINE HCL 50 MG CAPSULE PO PRN (21:39)
[2017-04-09] MEDS: NICOTINE POLACRILEX 4 MG GUM BUC PRN ×5 (09:15→21:38)
[2017-04-09] MEDS: PRENATAL VITAMINS W/ FOLIC ACID TABLET (FP) PO SCH (10:27)
[2017-04-09] MEDS: NICOTINE 21 MG/24 HOURS TOPICAL PATCH TD SCH (10:27)
[2017-04-09] MEDS: hydrOXYzine PAMOATE 50 MG CAPSULE (FP) PO PRN (10:29)
[2017-04-09] MEDS: diphenhydrAMINE HCL 50 MG CAPSULE PO PRN (21:38)
[2017-04-09] MEDS: THIAMINE HCL 100 MG TABLET (FP) PO SCH (21:38)
[2017-04-10] MEDS: NAPHAZOLINE/PHENIRAMINE OPHTHALMIC 15 ML BOTTLE OU PRN (06:44)
[2017-04-10] MEDS: NICOTINE POLACRILEX 4 MG GUM BUC PRN ×7 (06:45→22:18)
[2017-04-10] MEDS: PRENATAL VITAMINS W/ FOLIC ACID TABLET (FP) PO SCH (09:59)
[2017-04-10] MEDS: NICOTINE 21 MG/24 HOURS TOPICAL PATCH TD SCH (09:59)
[2017-04-10] MEDS: THIAMINE HCL 100 MG TABLET (FP) PO SCH (21:28)
[2017-04-10] MEDS: diphenhydrAMINE HCL 50 MG CAPSULE PO PRN (21:28)
[2017-04-11] MEDS: NAPHAZOLINE/PHENIRAMINE OPHTHALMIC 15 ML BOTTLE OU PRN (06:14)
[2017-04-11] MEDS: NICOTINE POLACRILEX 4 MG GUM BUC PRN ×7 (06:14→22:34)
[2017-04-11] MEDS: NICOTINE 21 MG/24 HOURS TOPICAL PATCH TD SCH (10:11)
[2017-04-11] MEDS: PRENATAL VITAMINS W/ FOLIC ACID TABLET (FP) PO SCH (10:12)
[2017-04-11] MEDS: hydrOXYzine PAMOATE 50 MG CAPSULE (FP) PO PRN (17:38)
[2017-04-11] MEDS: THIAMINE HCL 100 MG TABLET (FP) PO SCH (21:44)
[2017-04-11] MEDS: diphenhydrAMINE HCL 50 MG CAPSULE PO PRN (21:44)
[2017-04-12] MEDS: NAPHAZOLINE/PHENIRAMINE OPHTHALMIC 15 ML BOTTLE OU PRN (06:23)
[2017-04-12] MEDS: NICOTINE POLACRILEX 4 MG GUM BUC PRN ×7 (06:24→20:55)
[2017-04-12] MEDS: PRENATAL VITAMINS W/ FOLIC ACID TABLET (FP) PO SCH (10:12)
[2017-04-12] MEDS: NICOTINE 21 MG/24 HOURS TOPICAL PATCH TD SCH (10:12)
[2017-04-12] MEDS: THIAMINE HCL 100 MG TABLET (FP) PO SCH (21:52)
[2017-04-12] MEDS: diphenhydrAMINE HCL 50 MG CAPSULE PO PRN (21:52)
[2017-04-13] MEDS: NICOTINE POLACRILEX 4 MG GUM BUC PRN ×5 (06:30→21:40)
[2017-04-13] MEDS: PRENATAL VITAMINS W/ FOLIC ACID TABLET (FP) PO SCH (10:06)
[2017-04-13] MEDS: NICOTINE 21 MG/24 HOURS TOPICAL PATCH TD SCH (10:06)
[2017-04-13] MEDS: diphenhydrAMINE HCL 50 MG CAPSULE PO PRN (21:39)
[2017-04-13] MEDS: THIAMINE HCL 100 MG TABLET (FP) PO SCH (21:39)
[2017-04-14] MEDS: NICOTINE POLACRILEX 4 MG GUM BUC PRN ×7 (06:20→22:50)
[2017-04-14] MEDS: NAPHAZOLINE/PHENIRAMINE OPHTHALMIC 15 ML BOTTLE OU PRN (06:20)
[2017-04-14] MEDS: PRENATAL VITAMINS W/ FOLIC ACID TABLET (FP) PO SCH (10:15)
[2017-04-14] MEDS: NICOTINE 21 MG/24 HOURS TOPICAL PATCH TD SCH (10:15)
[2017-04-14] MEDS: hydrOXYzine PAMOATE 50 MG CAPSULE (FP) PO PRN (15:17)
[2017-04-14] MEDS: THIAMINE HCL 100 MG TABLET (FP) PO SCH (21:28)
[2017-04-14] MEDS: diphenhydrAMINE HCL 50 MG CAPSULE PO PRN (21:28)
[2017-04-15] MEDS: NAPHAZOLINE/PHENIRAMINE OPHTHALMIC 15 ML BOTTLE OU PRN (06:16)
[2017-04-15] MEDS: NICOTINE POLACRILEX 4 MG GUM BUC PRN ×8 (06:17→22:19)
[2017-04-15] MEDS: PRENATAL VITAMINS W/ FOLIC ACID TABLET (FP) PO SCH (10:07)
[2017-04-15] MEDS: NICOTINE 21 MG/24 HOURS TOPICAL PATCH TD SCH (10:08)
[2017-04-15] MEDS: THIAMINE HCL 100 MG TABLET (FP) PO SCH (21:49)
[2017-04-15] MEDS: diphenhydrAMINE HCL 50 MG CAPSULE PO PRN (21:49)
[2017-04-16] MEDS: NICOTINE POLACRILEX 4 MG GUM BUC PRN ×5 (05:57→20:40)
[2017-04-16] MEDS: NAPHAZOLINE/PHENIRAMINE OPHTHALMIC 15 ML BOTTLE OU PRN ×2 (05:57→21:31)
[2017-04-16] MEDS: NICOTINE 21 MG/24 HOURS TOPICAL PATCH TD SCH (09:57)
[2017-04-16] MEDS: PRENATAL VITAMINS W/ FOLIC ACID TABLET (FP) PO SCH (09:57)
[2017-04-16] MEDS: hydrOXYzine PAMOATE 50 MG CAPSULE (FP) PO PRN (13:35)
[2017-04-16] MEDS: diphenhydrAMINE HCL 50 MG CAPSULE PO PRN (21:29)
[2017-04-16] MEDS: THIAMINE HCL 100 MG TABLET (FP) PO SCH (21:29)
[2017-04-17] MEDS: NAPHAZOLINE/PHENIRAMINE OPHTHALMIC 15 ML BOTTLE OU PRN (06:13)
[2017-04-17] MEDS: NICOTINE POLACRILEX 4 MG GUM BUC PRN ×8 (06:14→22:01)
[2017-04-17] MEDS: PRENATAL VITAMINS W/ FOLIC ACID TABLET (FP) PO SCH (09:45)
[2017-04-17] MEDS: NICOTINE 21 MG/24 HOURS TOPICAL PATCH TD SCH (09:45)
[2017-04-17] MEDS: diphenhydrAMINE HCL 50 MG CAPSULE PO PRN (21:29)
[2017-04-17] MEDS: THIAMINE HCL 100 MG TABLET (FP) PO SCH (21:29)
[2017-04-18] MEDS: NICOTINE POLACRILEX 4 MG GUM BUC PRN ×6 (06:38→22:13)
[2017-04-18] MEDS: NAPHAZOLINE/PHENIRAMINE OPHTHALMIC 15 ML BOTTLE OU PRN (06:40)
[2017-04-18] MEDS: NICOTINE 21 MG/24 HOURS TOPICAL PATCH TD SCH (10:40)
[2017-04-18] MEDS: PRENATAL VITAMINS W/ FOLIC ACID TABLET (FP) PO SCH (10:40)
[2017-04-18] MEDS: hydrOXYzine PAMOATE 50 MG CAPSULE (FP) PO PRN (16:33)
[2017-04-18] MEDS: THIAMINE HCL 100 MG TABLET (FP) PO SCH (21:23)
[2017-04-18] MEDS: diphenhydrAMINE HCL 50 MG CAPSULE PO PRN (21:24)
[2017-04-19] MEDS: NICOTINE POLACRILEX 4 MG GUM BUC PRN (06:43)
[2017-04-19 07:04] VITALS: BP 121/69; PULSE 64; TEMP 97.5
[2017-04-19] MEDS: NICOTINE 21 MG/24 HOURS TOPICAL PATCH TD SCH (09:09)
[2017-04-19] MEDS: PRENATAL VITAMINS W/ FOLIC ACID TABLET (FP) PO SCH (09:09)
--- NOTE | 2017-04-19 09:59 | PN ---
Psychiatric Progress Note Vital Signs: Vital Signs Period Temp Pulse Resp BP Sys/Alvarez Pulse Ox Last 24 Hr 97.5 F 64 16-18 121/69 Date of Session: 04/19/17 Chief Complaint:: discharge visit HPI: Patient has addressed alcohol, cannabis, nicotine dependence comorbid substance induced sleep disorder. ROS: GERD medically managed. Current Medications: Active Medications Generic Name Dose Route Start Last Admin Trade Name Freq PRN Reason Stop Dose Admin Acetaminophen 650 mg 03/20/17 13:02 Tylenol - PO Q4H PRN FEVER OR PAIN Al Hydroxide/Mg Hydroxide 30 ml 03/20/17 13:02 Mylanta Oral Suspension - PO Q6H PRN DYSPEPSIA Diphenhydramine HCl 50 mg 03/21/17 13:42 04/18/17 21:24 Benadryl - PO 50 mg HS PRN Administration INSOMNIA Eucalyptus/Menthol/Phenol/Sorbitol 1 each 03/20/17 13:02 Cepastat Lozenge - MM Q4H PRN SORE THROAT Guaifenesin 10 ml 03/20/17 13:02 Robitussin Dm - PO Q6H PRN COUGH Hydroxyzine Pamoate 50 mg 03/20/17 13:02 04/18/17 16:33 Vistaril - PO 50 mg Q4H PRN Administration AGITATION Ibuprofen 400 mg 03/20/17 13:02 Motrin - PO Q6H PRN PAIN Loperamide HCl 4 mg 03/20/17 13:02 03/27/17 06:42 Imodium - PO 4 mg Q6H PRN Administration DIARRHEA Magnesium Hydroxide 30 ml 03/20/17 13:02 Milk Of Magnesia - PO DAILY PRN CONSTIPATION Naphazoline HCl/Pheniramine Maleate 2 drop 03/23/17 14:16 04/18/17 06:40 Visine-A - OU 2 drop QID PRN Administration DRY EYES Nicotine 21 mg 03/21/17 10:00 04/19/17 09:09 Nicoderm Patch - TD Not Given DAILY BENOIT Nicotine Polacrilex 4 mg 03/20/17 13:02 04/19/17 06:43 Nicorette Gum - BUC 4 mg Q2H PRN Administration NICOTINE REPLACEMENT RX Multivit/Folic Acid/Iron 1 tab 03/21/17 10:00 04/19/17 09:09 Vitamins (Sjr) - PO 1 tab DAILY BENOIT Administration Pseudoephedrine/Triprolidine 1 combo 03/20/17 13:02 Actifed - PO TID PRN NASAL CONGESTION Thiamine HCl 100 mg 03/20/17 22:00 04/18/17 21:23 Vitamin B1 - PO 100 mg HS BENOIT Administration Current Side Effect: No Lab tests ordered: No Lab tests reviewed: Yes Provider note:: Patient has complted today this program and met his goals, will continue to address his issues aat [facility] program, he gained insights into his addiction and motivated to continue maintain abstinence. Patient was encouraged to utilize all supports available to prevent relapses. Patient is stable for discharge today. Total face to face time:: 15 Mental Status Exam - Mental Status Exam Alert and Oriented to: Time, Place, Person Cognitive Function: Good Patient Appearance: Well Groomed Mood: Hopeful Affect: Appropriate, Mood Congruent Patient Behavior: Appropriate, Cooperative Speech Pattern: Clear, Appropriate Voice Loudness: Normal Thought Process: Intact, Goal Oriented Thought Disorder: Not Present Hallucinations: Denies Suicidal Ideation: Denies Homicidal Ideation: Denies Insight/Judgement: Fair Sleep: Fair Appetite: Fair Muscle strength/Tone: Normal Gait/Station: Normal Psychiatric Treatment Plan - Problem List (1) Alcohol dependence Current Visit: Yes (2) Marijuana dependence Current Visit: Yes (3) Nicotine dependence Current Visit: Yes Qualifiers: Nicotine product type: cigarettes Substance use status: in withdrawal Qualified Code(s): F17.213 - Nicotine dependence, cigarettes, with withdrawal (4) Substance-induced sleep disorder Current Visit: Yes
== END 2017-04-19 10:30 | disposition home or self-care (01) | DRG 772 ==
LOC: YASAS 12:34 → Y5N 12:35
PROVIDERS: ADMIT Psychiatry & Neurology Psychiatry; ATTEND Psychiatry & Neurology Psychiatry
PROC: HZ42ZZZ Group Counseling for Substance Abuse Treatment, Cognitive-Behavioral (ICD-10-PCS; principal; 2017-03-20)
DX: F10.20 Alcohol dependence, uncomplicated (principal); F12.20 Cannabis dependence, uncomplicated; F17.213 Nicotine dependence, cigarettes, with withdrawal; F19.282 Other psychoactive substance dependence with psychoactive substance-induced sleep disorder; G47.00 Insomnia, unspecified; K21.9 Gastro-esophageal reflux disease without esophagitis; R19.5 Other fecal abnormalities
CPT/HCPCS: 36415; 80048; 85025

== ENCOUNTER 2018-04-19 09:54 | Day surgery (SDC) | payer OTHER ==
[2018-04-18 09:29] VITALS: BMI 22.4
[2018-04-19] MEDS ORDERED: DEXAMETHASONE SOD PHOSPHATE 4 MG/1 ML VIAL ONE (11:13)
[2018-04-19] MEDS ORDERED: LIDOCAINE HCL 2% (20ML MULTI-DOSE VIAL) NR ONE (11:38)
[2018-04-19] MEDS ORDERED: MIDAZOLAM HCL 2 MG/2 ML SINGLE DOSE VIAL ONE ×3 (11:50→12:16)
[2018-04-19] MEDS ORDERED: PROPOFOL 20 ML ONE ×2 (11:55→12:06)
[2018-04-19] MEDS ORDERED: ceFAZolin SODIUM 1 GM VIAL IVPB ONE (12:05)
[2018-04-19] MEDS ORDERED: LIDOCAINE HCL 2% (50ML VIAL) INF ONE (12:34)
[2018-04-19] MEDS ORDERED: BUPIVACAINE HCL/PF 0.5% (5MG/ML) 10 ML VIAL IJ ONE (12:46)
[2018-04-19 13:52] VITALS: TEMP 97.9
[2018-04-19 15:48] VITALS: BP 113/65; PULSE 63
--- NOTE | 2018-04-20 11:06 | OP ---
DATE OF OPERATION: 04/19/2018 PREOPERATIVE DIAGNOSIS: Painful left foot hallux rigidus. POSTOPERATIVE DIAGNOSIS: Painful left foot hallux rigidus. SURGEON: Zachery Mohan DPM MANAGER GALLERY: Juany Bob ANESTHESIA: MAC and local. OPERATION: Cheilectomy and exostectomy of the 1st metatarsal head with synovectomy of the left foot. PATHOLOGY: Left foot bone and soft tissue. ESTIMATED BLOOD LOSS: 1 mL HEMOSTASIS: Ankle tourniquet. MATERIALS: 3-0, 4-0 Vicryl, 4-0 nylon. INJECTIONS: 20 mL of a 1:1 mixture of 2% lidocaine plain and 0.5% Marcaine plain preoperatively. OPERATIVE FINDING: The patient was brought to the operating room, placed on the operating table in the supine position. A pneumatic ankle tourniquet was then placed on the patient's left ankle. Following IV sedation, local anesthesia was obtained utilizing 20 mL of a 1:1 mixture of 2% lidocaine plain and 0.5% Marcaine plain. Foot was then scrubbed, prepped, and draped in the usual aseptic manner. Esmarch bandage was then utilized to exsanguinate the patient's left foot, and the tourniquet was inflated. Attention was directed to the dorsal aspect of the 1st metatarsal head of the left foot where a 4-cm linear longitudinal incision was made medial and parallel to the tendon of the hallucis longus. The incision was deepened through the subcutaneous tissue using sharp and blunt dissection. Care was taken to identify and retract all vital neural and vascular structures. All bleeders were ligated and cauterized as necessary. The periosteal and capsular structures were then carefully dissected free, reflected medially and laterally, thus exposing the head of the 1st metatarsal where was noted extensive exostosis was present around the 1st metatarsal head, where osteophytes were also present, limiting the hallux dorsiflexion range of motion. Utilizing a sagittal saw, the dorsal exostosis and medial prominence as well as all osteophytes were resected and passed from the operative field. It was noted at this time significant range of motion of the 1st metatarsophalangeal joint was restored. All bone and synovial tissue were sent to Pathology for evaluation. A rongeur and dalton were then utilized to smooth all rough surfaces of the 1st metatarsal head, and copious amount of normal saline was flushed to the area. The periosteal and capsular structures were reapproximated using 3-0 Vicryl, and subcutaneous tissue was closed with 4-0 Vicryl. Skin edges were then coapted using 4-0 nylon in a continuous interlocking suture stitch. The incision was dressed with Betadine-soaked Adaptic, and covered with sterile compressive dressing such as 4 x 4, Buster, and Bebeto bandage. Tourniquet was then deflated, and immediate hyperemia returned to all digits. The patient tolerated the procedure well and was transferred to the recovery room with all vital signs stable and vascular status intact to the feet. Following postop monitoring, the patient will be discharged and given instructions and prescription which was discussed prior to surgery. MATEO JAFFE/[id number]
--- NOTE | 2018-04-21 17:30 | PATH ---
Surgical Pathology Report Patient Name: WHIT FOURNIER [facility]. Rec. #: [id number] /Age/Gender: 1965 (Age: 52) / M Account: [id number] Location: [facility] Taken: 04/19/2018 Received: 04/20/2018 Reported: 04/21/2018 Physicians: Zachery Mohan Specimen(s) Received A: SYNOVIUM 1ST METATARSAL B: BONE 1ST METATARSAL PHALANGEAL JOINT Clinical History Bunion left foot Final Diagnosis A. FOOT, LEFT, 'SYNOVIUM', FIRST METATARSAL, BUNIONECTOMY: BONE WITH DEGENERATIVE CHANGES, SYNOVIUM, FIBROCONNECTIVE AND FIBROADIPOSE TISSUE. B. FOOT, LEFT, BONE, FIRST METATARSAL, BUNIONECTOMY: BONE WITH DEGENERATIVE AND REACTIVE CHANGES. Electronically Signed Maggie Larson M.D. Gross Description A. Received in formalin labeled "synovium first metatarsal," is a 2.0 x 1.6 x 0.3 cm aggregate of curry fragments of soft tissue and possible bone. The specimen is submitted in toto in one cassette, following decalcification. B. Received in formalin labeled "bone first metatarsal," is a 4.0 x 3.2 x 0.7 cm aggregate of curry-yellow portions of bone and soft tissue. Gastroenterology Teacher sections are submitted in one cassette, following decalcification. /04/20/201804/20/2018
== END 2018-04-19 16:15 | disposition home or self-care (01) ==
LOC: JASU-SURG 09:54
PROC: 0QBP0ZZ Excision of Left Metatarsal, Open Approach (ICD-10-PCS; principal; 2018-04-19 11:30)
DX: M20.22 Hallux rigidus, left foot (principal)
CPT/HCPCS: 73630-TC-LT; 88304-TC; 88305-TC; 88311-TC; 94760; 97116-GP